=== PATIENT | male | born 1980 | race Caucasian/White ===

== ENCOUNTER 2019-06-24 10:38 | Outpatient (CLI) | payer OTHER ==
--- NOTE | 2019-06-25 15:26 | XRAY Report ---
Reason: Pain in Right Shoulder, Possible AC seperation Procedure Date: 06/24/2019 Accession Number: [id number] / [id number] Procedure: XR - AC Joints CPT Code: FULL RESULT: EXAMS: 1. Right Acromioclavicular Joint Radiography 2. Left Acromioclavicular Joint Radiography EXAM DATE: 06/24/2019 05:22 PM. CLINICAL HISTORY: Pain in right shoulder, possible AC separation. COMPARISON: None. TECHNIQUE: 2 views each joint. FINDINGS: Bones: Normal. No fracture or bone lesion. The left AC joint is partially off the field of view. Joints: The acromioclavicular joints are normal and without subluxation. Soft Tissues: Normal. No soft tissue swelling. IMPRESSION: No right AC joint separation identified. [facility]
--- NOTE | 2019-06-25 15:30 | XRAY Report ---
Reason: PAIN IN RIGHT SHOULDER Procedure Date: 06/24/2019 Accession Number: [id number] / [id number] Procedure: XR - Shoulder 3 View RT CPT Code: FULL RESULT: EXAM: RIGHT SHOULDER RADIOGRAPHY EXAM DATE: 06/24/2019 05:18 PM. CLINICAL HISTORY: PAIN IN RIGHT SHOULDER. COMPARISON: None. TECHNIQUE: 3 views. FINDINGS: Bones: Normal. No fracture or bone lesion. Joints: The glenohumeral and acromioclavicular joints are normal. Soft tissues: The visualized hemithorax is unremarkable. No soft tissue swelling. IMPRESSION: Normal shoulder radiography. [facility]
== END 2019-06-24 10:39 | disposition home or self-care (01) ==
LOC: DI 10:38
PROVIDERS: ATTEND Family Medicine
DX: M25.511 Pain in right shoulder (principal)
CPT/HCPCS: 73050